=== PATIENT | female | born 1980 | race Caucasian/White ===

== ENCOUNTER 2019-10-08 07:25 | Day surgery (SDC) | payer BC ==
[2019-10-07 15:32] VITALS: BMI 53.1
[2019-10-08] MEDS ORDERED: PROPOFOL 200 MG/20 ML VIAL ONE (10:28)
[2019-10-08] MEDS ORDERED: Lidocaine 1% PF 5 ML VIAL ONE (10:28)
--- NOTE | 2019-10-08 15:43 | OP ---
DATE OF PROCEDURE: 10/08/2019 PROCEDURES PERFORMED: Esophagogastroduodenoscopy with biopsy and esophageal dilation over guidewire. PREOPERATIVE DIAGNOSES: Epigastric abdominal pain and esophageal reflux. DESCRIPTION OF PROCEDURE: Informed consent was obtained from the patient. She was sedated with total intravenous anesthesia. The bite block was placed and the endoscope was advanced easily to the second portion of the duodenum and retroflexion was performed in the stomach. The esophagus had a mild ring in the distal esophagus at the GE junction. There was a 2 cm hiatal hernia present. The esophagus was dilated to 18 mm with a Savary dilator over a guidewire. The second-look endoscopy showed no change at the dilation site. The stomach had erosive linear gastritis in the antrum, which was moderate. Biopsies were obtained to rule out Helicobacter pylori from the antrum and body. Retroflexed views in the stomach were otherwise normal. The pylorus and first and second portions of the duodenum were normal. Duodenal biopsies were taken to rule out celiac disease. Air was suctioned from the stomach and the procedure was completed. IMPRESSION: 1. Slight esophageal ring in the distal esophagus dilated to 18 mm with a Savary dilator over a guidewire without change on second look. 2. A 2 cm hiatal hernia. 3. Moderate erosive gastritis, biopsied. 4. Normal duodenum. Biopsy to rule out celiac disease. RECOMMENDATIONS: 1. Proton pump inhibitor daily. 2. Await histopathology. 3. Follow up in [facility]. Job ID: [id number]
== END 2019-10-08 10:43 | disposition home or self-care (01) ==
LOC: SDC 07:25
PROVIDERS: ATTEND Internal Medicine Gastroenterology
PROC: 0DB88ZX Excision of Small Intestine, Via Natural or Artificial Opening Endoscopic, Diagnostic (ICD-10-PCS; principal; 2019-10-08)
PROC: 0D758ZZ Dilation of Esophagus, Via Natural or Artificial Opening Endoscopic (ICD-10-PCS; principal; 2019-10-08)
PROC: 0DB78ZX Excision of Stomach, Pylorus, Via Natural or Artificial Opening Endoscopic, Diagnostic (ICD-10-PCS; principal; 2019-10-08)
PROC: 0DB98ZX Excision of Duodenum, Via Natural or Artificial Opening Endoscopic, Diagnostic (ICD-10-PCS; principal; 2019-10-08)
DX: K21.9 Gastro-esophageal reflux disease without esophagitis (principal); K44.9 Diaphragmatic hernia without obstruction or gangrene; K29.60 Other gastritis without bleeding; F41.9 Anxiety disorder, unspecified; F32.9 Major depressive disorder, single episode, unspecified; Z79.899 Other long term (current) drug therapy; Z87.891 Personal history of nicotine dependence; Z88.0 Allergy status to penicillin; Z88.5 Allergy status to narcotic agent; Z91.018 Allergy to other foods
CPT/HCPCS: 88305; 88312; J2001; J2704